=== PATIENT | male | born 1985 | race Caucasian/White ===

== ENCOUNTER 2019-11-08 16:40 | Emergency (ER) | payer OTHER ==
[~2019-11-08] VITALS: Ht 172.7 cm; Wt 86.6 kg
[2019-11-08 16:41] VITALS: BP 119/78
[2019-11-08] MEDS ORDERED: ACETAMINOPHEN ES 500 MG TABLET PO ONE (17:30)
--- NOTE | 2019-11-08 17:30 | NUR ---
PT HAD AN ORIF TO THE R KNEE/LE 1 MONTH AGO FOR MEDIAL OR POSTERIOR MALLEOLUS FX.
[2019-11-08] MEDS ORDERED: ACETAMINOPHEN ES 500 MG TABLET ONE (17:32)
--- NOTE | 2019-11-08 17:59 | NUR ---
Crutches dispensed. Pt instructed on proper use of crutches. Patient able to demonstrate correct use of crutches.
== END 2019-11-08 18:03 | disposition home or self-care (01) ==
LOC: ER 16:42
DX: S82.191D Other fracture of upper end of right tibia, subsequent encounter for closed fracture with routine healing (principal); X58.XXXD Exposure to other specified factors, subsequent encounter
CPT/HCPCS: 73590-TC